=== PATIENT | male | born 1990 | race Caucasian/White ===

== ENCOUNTER 2017-01-25 15:17 | Emergency (ER) | payer OTHER ==
[2017-01-25 15:28] VITALS: BP 154/84; PULSE 78; RESP 20; TEMP 98.2
[2017-01-25] MEDS ORDERED: TOPICAL SKIN ADHESIVE 1 EACH AMP TOPICAL ONE (15:43)
--- NOTE | 2017-01-25 15:49 | ED ---
Wound/Laceration HPI - General Chief Complaint: Wound/Laceration Stated Complaint: laceration Time Seen by Provider: 01/25/17 15:43 Source: patient Mode of arrival: ambulatory Limitations: no limitations - History of Present Illness Initial Comments: 26-year-old male left great toe laceration that occurred just prior to arrival. Patient states he jumped off the boat and hit the brake wall and lacerated the bottom of his toe. Patient states he did put saline water on it and then bandaged it and came here. Patient states his tetanus is up-to-date. He denies any numbness or tingling. Patient always has limited range of motion of his joints anyways. He states he is able to ambulate. No numbness or tingling. Place: outdoors, other Context: accidental Associated Symptoms: pain - Related Data Previous Rx's Medication Instructions Recorded Cephalexin [Keflex] 500 mg PO Q8HR #30 cap 01/25/17 Allergies Allergy/AdvReac Type Severity Reaction Status Date / Time No Known Allergies Allergy Verified 01/25/17 15:28 Review of Systems ROS Statement: Those systems with pertinent positive or pertinent negative responses have been documented in the HPI. ROS Other: All systems not noted in ROS Statement are negative. Skin: Reports: other (laceration to left great toe) Past Medical History Past Medical History: No Reported History History of Any Multi-Drug Resistant Organisms: None Reported Past Surgical History: Adenoidectomy, Tonsillectomy Past Psychological History: No Psychological Hx Reported Smoking Status: Never smoker Past Alcohol Use History: Occasional Past Drug Use History: None Reported General Exam Limitations: no limitations General appearance: alert, in no apparent distress Extremities exam: Present: full ROM, tenderness Neurological exam: Present: alert, oriented X3, CN II-XII intact Psychiatric exam: Present: normal affect, normal mood Skin exam: Present: warm, dry, normal color (left great toe laceration to plantar surface , 1 cm, full sensation and ROM, good cap refill). Absent: intact ( 1022plantar surface , 1 cm, full sensation and ROM, good cap refill), rash Course Vital Signs 01/25/17 15:26 Temperature 98.2 F Pulse Rate 78 Respiratory 20 Rate Blood Pressure 154/84 O2 Sat by Pulse 98 Oximetry Procedures - Procedures Initial comment: one similar laceration to the plantar surface underneath the left great toe patient was prepped and draped appropriately with normal saline and Betadine. Dermabond was applied to the laceration bacitracin was applied to the small abrasion on the base of the left great toe patient tolerated well bacitracin and dressing applied. Medical Decision Making - Medical Decision Making patient instructed keep area clean dry and covered. Patient is limited range of motion due to Dermabond closure. Patient understands and agrees with plan of care Disposition Clinical Impression: Laceration Disposition: HOME SELF-CARE Condition: Good Instructions: Laceration (ED), Skin Adhesive Care (ED) Prescriptions: Cephalexin [Keflex] 500 mg PO Q8HR #30 cap Referrals: None,Stated [Primary Care Provider] - 1-2 days Neda Martinez MD [REFERRING] - 1-2 days Time of Disposition: 16:08
== END 2017-01-25 16:17 | disposition home or self-care (01) ==
LOC: EC 15:17
DX: S91.112A Laceration without foreign body of left great toe without damage to nail, initial encounter (principal); W22.8XXA Striking against or struck by other objects, initial encounter; Y93.39 Activity, other involving climbing, rappelling and jumping off
CPT/HCPCS: 12001; 99282